=== PATIENT | female | born 1980 | race Two or more races ===

== ENCOUNTER 2018-11-15 09:34 | Emergency (ER) | payer SELFPAY ==
[~2018-11-15] VITALS: Ht 149.9 cm; Wt 59.0 kg
[2018-11-15 09:43] VITALS: BP 132/89
--- NOTE | 2018-11-15 10:20 | Emergency Room Report ---
History of Present Illness General Chief Complaint: Skin Rash/Abscess Source: Patient Present Illness HPI 38-year-old female comes here with complaints of having red raised itchy rash notable on her right leg for 2 days, and nose another area involving her left leg today, so she came in for evaluation. She reports she can't think of anything that triggered them, and reports that she also noted that she had a mild sore throat and right earache yesterday, but none today. Headache, tinnitus, odynophagia, dysphagia, hearing loss, dizziness, any other symptoms. Allergies: Coded Allergies: No Known Allergies (Unverified , 11/15/18) Patient History Past Medical History: see triage record Last Menstrual Period: now Now: No Reviewed Nursing Documentation: PMH: Agreed; PSxH: Agreed Nursing Documentation-PMH Past Medical History: No Stated History Review of Systems All Other Systems: negative except mentioned in HPI Physical Exam Vital Signs Date Time Temp Pulse Resp B/P (MAP) Pulse Ox O2 Delivery O2 Flow Rate FiO2 11/15/18 09:43 98.8 86 20 132/89 97 Room Air Sp02 EP Interpretation: reviewed, normal General Appearance: no apparent distress, alert, non-toxic Head: normocephalic Eyes: bilateral eye normal inspection, bilateral eye PERRL, bilateral eye EOMI ENT: normal ENT inspection, hearing grossly normal, normal pharynx, no angioedema, normal voice, moist mucus membranes Neck: normal inspection, full range of motion, supple, supple/symm/no masses Respiratory: chest non-tender, lungs clear, normal breath sounds, chest symmetrical, palpation of chest normal Cardiovascular #1: normal peripheral pulses, regular rate, rhythm Cardiovascular #2: 2+ radial (R), 2+ radial (L) Gastrointestinal: normal inspection, non tender, soft, no mass, no guarding, no rebound Rectal: deferred Genitourinary: normal inspection, no CVA tenderness Musculoskeletal: back normal, gait/station normal, normal range of motion, non- tender, no calf tenderness Neurologic: alert, responsive, property portfolio officer III-XII nml as tested, motor strength/tone normal, sensory intact, speech normal Psychiatric: judgement/insight normal, memory normal, mood/affect normal, no suicidal/homicidal ideation Skin: normal color, no rash, warm/dry, normal turgor, rash - 2 circular areas of red , raised, pruritic spots on lateral aspect of R upper thigh and R upper calf, 1 similar spot on medial aspect L upper calf Lymphatic: no adenopathy Medical Decision Making Diagnostic Impression: Primary Impression: Insect bite ER Course Patient having signs and symptoms consistent with localized allergic reaction to insect bites, suspect possible bed bug bites, or possibly just and sore mosquitoes, but since she woke up with one this morning, it is more suspicious for bedbug bites. Will give benadryl po, and rx for the same with calamine lotion OTC recs, evaluation of sheets/bedding, f/u with PMD. Last Vital Signs Date Time Temp Pulse Resp B/P (MAP) Pulse Ox O2 Delivery O2 Flow Rate FiO2 11/15/18 09:43 98.8 86 20 132/89 97 Room Air Disposition: HOME, SELF-CARE Condition: Stable Scripts No Active Prescriptions or Reported Meds Referrals: NOT CHOSEN IPA/,REFERRING (PCP) SYMONE WEIR M.D Nov 15, 2018 10:20
[2018-11-15] MEDS ORDERED: BENADRYL25 M3 PO (10:25)
[2018-11-15] MEDS ORDERED: KENALOG 0.025%15 GM TOPIC (10:25)
[2018-11-15 10:27] VITALS: BP 132/89
== END 2018-11-15 10:30 | disposition home or self-care (01) ==
LOC: EMR 10:08
DX: S70.361A Insect bite (nonvenomous), right thigh, initial encounter (principal); S80.862A Insect bite (nonvenomous), left lower leg, initial encounter; W57.XXXA Bitten or stung by nonvenomous insect and other nonvenomous arthropods, initial encounter; Y92.9 Unspecified place or not applicable
CPT/HCPCS: 99282

== ENCOUNTER 2019-07-14 11:52 | Emergency (ER) | payer SELFPAY ==
[~2019-07-14] VITALS: Ht 149.9 cm; Wt 62.6 kg
[~2019-07-14 11:52] MED LIST: BENADRYL25 M3 PO; KENALOG 0.025%15 GM TOPIC
[2019-07-14 12:25] VITALS: BP 125/69
[2019-07-14] MEDS ORDERED: Ketorolac 30mg Inj IV ONE (12:30)
--- NOTE | 2019-07-14 13:06 | Emergency Room Report ---
History of Present Illness General Chief Complaint: Abdominal Pain Source: Patient Present Illness HPI 38-year-old female with no significant past medical history here complaining of 3 days of epigastric abdominal pain, multiple bouts of nonbloody emesis. Denies diarrhea and constipation. Denies hemoptysis and hematemesis . Denies URI symptoms. Complains of fever and chills, denying urinary frequency and hematuria. Denies recent travel, alcohol intake, drug use, tobacco smoke. Reports her symptoms started after she had buffet 3 days ago., No guarding is noted in abdomen. No distention noted. Reports that she has history of tubal ligation and last menstrual period was 1 week ago regular. Allergies: Coded Allergies: No Known Allergies (Unverified , 11/15/18) Patient History Past Medical History: see triage record Past Surgical History: unable to obtain Pertinent Family History: none Last Menstrual Period: 05/2019 Now: No Immunizations: UTD Reviewed Nursing Documentation: PMH: Agreed; PSxH: Agreed Nursing Documentation-PMH Past Medical History: No Stated History Review of Systems All Other Systems: negative except mentioned in HPI Physical Exam Vital Signs Date Time Temp Pulse Resp B/P (MAP) Pulse Ox O2 Delivery O2 Flow Rate FiO2 07/14/19 12:06 98.1 72 16 137/87 (104) 99 Room Air Sp02 EP Interpretation: reviewed, normal General Appearance: no apparent distress, alert, GCS 15, non-toxic Head: normocephalic, atraumatic Eyes: bilateral eye normal inspection, bilateral eye PERRL ENT: hearing grossly normal, normal pharynx, no angioedema, normal voice Neck: full range of motion, supple/symm/no masses Respiratory: chest non-tender, lungs clear, normal breath sounds, no rhonchi, no respiratory distress, no retraction, no wheezing, speaking full sentences Cardiovascular #1: regular rate, rhythm, no edema Cardiovascular #2: 2+ radial (R), 2+ radial (L) Gastrointestinal: normal bowel sounds, non tender, soft, no mass, no organomegaly, no peritonitis, no bruit, non-distended, no guarding, no hernia, no pulsatile mass, no rebound Genitourinary: normal inspection, no CVA tenderness Musculoskeletal: back normal, decreased range of motion, normal range of motion , digits/nails normal, inflammation, no calf tenderness Neurologic: alert, motor strength/tone normal, oriented x3, sensory intact, responsive, speech normal Psychiatric: judgement/insight normal, memory normal, mood/affect normal, no suicidal/homicidal ideation Skin: no rash Lymphatic: no adenopathy Medical Decision Making PA Attestation All my diagnosis and treatment plans were reviewed ad discussed with my supervising physician Dr. Wong Diagnostic Impression: Primary Impression: Viral gastroenteritis ER Course 38-year-old female with no significant past medical history here complaining of 3 days of epigastric abdominal pain, multiple bouts of nonbloody emesis. Denies diarrhea and constipation. Denies hemoptysis and hematemesis. Denies URI symptoms. Complains of fever and chills, denying urinary frequency and hematuria. Denies recent travel, alcohol intake, drug use, tobacco smoke. Reports her symptoms started after she had buffet 3 days ago., No guarding is noted in abdomen. No distention noted. Reports that she has history of tubal ligation and last menstrual period was 1 week ago regular. Ddx considered but are not limited to: appendicitis, cholecystis, gastritis, gastroenteritis, UTI, pyelonephritis, SBO, diverticulitis, influenza with GI manifestation, MA, complication with Vital signs: are WNL, pt. is afebrile H&PE are most consistent with: Viral gastroenteritis ORDERS: UA, urine test, lipase, cbc, cmp, Zofran, Tylenol, omeprazole ED INTERVENTIONS: NS bolus, Zofran, toradol DISCHARGE: At this time pt. is stable for d/c to home. Will provide printed patient care instructions, and any necessary prescriptions. Care plan and follow up instructions have been discussed with the patient prior to discharge. Patient to follow-up with her primary care provider, if worsening symptoms return to emergency room, keep BRAT diet Last Vital Signs Date Time Temp Pulse Resp B/P (MAP) Pulse Ox O2 Delivery O2 Flow Rate FiO2 07/14/19 12:06 98.1 72 16 137/87 (104) 99 Room Air Disposition: HOME, SELF-CARE Condition: Stable Scripts Acetaminophen* (TYLENOL EXTRA STRENGTH*) 500 Mg Tablet 500 MG ORAL Q6H PRN for Mild Pain/Temp > 100.5, #20 TAB 0 Refills Prov: Roula Benjamin 07/14/19 Omeprazole (OMEPRAZOLE) 20 Mg Capsule. 20 MG ORAL DAILY, #14 CAP Prov: Roula Benjamin 07/14/19 Ondansetron (Zofran) 4 Mg Tablet 4 MG ORAL Q6H PRN for Nausea & Vomiting, #10 TAB Prov: Roula Benjamin 07/14/19 Patient Instructions: Abdominal Pain, Adult, Viral Gastroenteritis, Adult Additional Instructions: Take medication as directed, follow-up with a primary care provider, if worsening symptoms return to the emergency room, keep BRAT diet, consisted of banana, rice, applesauce, piece of toast, and follow-up with your primary care. If worsening symptoms return to the emergency room Roula Benjamin Jul 14, 2019 13:06
[2019-07-14 13:52] LABS: APPEARANCE,URINE CLEAR; BILIRUBIN, URINE NEGATIVE (NEGATIVE); COLOR,URINE PALE YELLOW; GLUCOSE, URINE (UA) NEGATIVE (NEGATIVE); KETONES,URINE NEGATIVE (NEGATIVE); LEUKOCYTE ESTERASE ,URINE NEGATIVE (NEGATIVE); NITRITE,URINE NEGATIVE (NEGATIVE); PH,URINE 7 (4.5-8.0); PROTEIN,URINE NEGATIVE (NEGATIVE); UROBILINOGEN,URINE NORMAL MG/DL (0.0-1.0)
[2019-07-14 13:56] LABS: HEMATOCRIT 44.4 % (37.0-47.0); HEMOGLOBIN 15.6 G/DL (12.0-16.0); MEAN CORPUSCULAR VOLUME 85 FL (80-99); PLATELET COUNT 225 K/UL (150-450); RED BLOOD COUNT 5.25 M/UL (4.20-5.40); WHITE BLOOD COUNT 9.7 K/UL (4.8-10.8)
[2019-07-14 14:08] LABS: ANION GAP 11 mmol/L (5-15); BLOOD UREA NITROGEN 9 mg/dL (7-18); CALCIUM 8.5 MG/DL (8.5-10.1); CARBON DIOXIDE 26 MMOL/L (21-32); CHLORIDE 105 MMOL/L (98-107); CREATININE 0.5 MG/DL (0.55-1.30); POTASSIUM 3.9 MMOL/L (3.5-5.1); SODIUM 141 MMOL/L (136-145)
[2019-07-14 14:12] LABS: ALANINE AMINOTRANSFERASE 26 U/L (12-78); ALBUMIN 4.2 G/DL (3.4-5.0); ALBUMIN/GLOBULIN RATIO 1.2 (1.0-2.7); ALKALINE PHOSPHATASE 70 U/L (46-116); ASPARTATE AMINO TRANSFERASE 13 U/L (15-37); BILIRUBIN,TOTAL 0.6 MG/DL (0.2-1.0)
[2019-07-14] MEDS ORDERED: TYLENOL EXTRA500 MG ORAL (14:17)
[2019-07-14] MEDS ORDERED: OMEPRAZOLE20 M2 ORAL (14:17)
[2019-07-14] MEDS ORDERED: ZOFRAN4 M1 ORAL (14:17)
[2019-07-14 14:26] VITALS: BP 116/78
== END 2019-07-14 14:26 | disposition home or self-care (01) ==
LOC: EMR 12:42
DX: K52.9 Noninfective gastroenteritis and colitis, unspecified (principal)
CPT/HCPCS: 36415; 80053; 81001; 81025; 83690; 85007; 85025; 96361; 96374; 96375; 99284; J1885; J2405; J7030; S0028